=== PATIENT | male | born 1965 | race Caucasian/White ===

== ENCOUNTER 2021-08-11 09:00 | Outpatient (REF) | payer MEDICARE, SELFPAY ==
--- NOTE | ~2021-08-11 | XR_ITS ---
EXAMINATION: XR CERVICAL SPINE CLINICAL INFORMATION: Cervicalgia. COMPARISON: Cervical spine done on 07/26/2017. TECHNIQUE: 5 views of the cervical spine were obtained. FINDINGS: The heights, alignments of the cervical vertebrae are normal. Decreased disc height, endplate osteophyte formation, consistent with moderate to severe spondylosis related changes are noted at C4-5 and to a lesser extent C5-6 and C6-C7, similar to prior study. Moderate foraminal narrowing is noted on the right at C3-4, C4-5 and C5-6 and C6-C7 and on the left at C3-4, C4-5, and C6-C7. The prespinal soft tissues are unremarkable. Both lung apices are clear. The C1-C2 alignment is intact. XR/XR cervical spine 4V IMPRESSION: Multilevel degenerative spondylosis, most pronounced changes at C4-5, similar to prior study dated 07/26/2017.
[2021-08-11 09:24] LABS: MANUAL DIFF FLAG NO
[2021-08-11 09:39] LABS: Basophils Absolute Auto 0.1 X10*3/uL (0.0-0.2); Basophils Percent Auto 0.7 % (0-2); Eosinophils Absolute Auto 0.1 X10*3/uL (0.0-0.4); Eosinophils Percent Auto 1.2 % (0-4); Hematocrit 49.2 % (42.0-52.0); Hemoglobin 16.7 g/dl (14.0-18.0); Imm Gran Abs Auto 0.03 X10*3/uL (0.00-0.03); Imm Gran Pct Auto 0.3 % (0.0-0.4); Lymphocytes Absolute Auto 2.9 X10*3/uL (1.2-4.9); Mean Corpuscular HGB Conc 33.9 g/dl (31.0-36.0); Mean Corpuscular Hemoglobin 31.9 pg (27.0-33.0); Mean Corpuscular Volume 93.9 fL (80.0-98.0); Mean Platelet Volume 9.2 fL (9.4-12.4); Monocytes Absolute Auto 0.8 X10*3/uL (0.1-1.2); Monocytes Percent Auto 7.8 % (2-11); Neutrophils Absolute Auto 5.8 x10*3/uL (2.0-8.3); Platelet Count 313 X10*3/uL (160-400); Red Blood Count 5.24 X10*6/uL (4.60-5.80); Red Cell Distribution Width 13.7 % (11.0-16.0); White Blood Count 9.6 X10*3/uL (4.8-10.8)
[2021-08-11 10:11] LABS: Alanine Aminotransferase 20 U/L (0-40); Albumin Level 3.9 g/dL (3.5-5.0); Alkaline Phosphatase 76 U/L (39-117); Anion Gap 10 (12-20); Aspartate Amino Transferase 20 U/L (5-37); Bilirubin Total 0.5 mg/dL (0.0-1.0); Blood Urea Nitrogen 12 mg/dL (9-16); Calcium 9.1 mg/dL (8.4-10.2); Carbon Dioxide 22 mmol/L (22-29); Chloride 108 mmol/L (96-108); Estimated Glomerular Filt Rate > 60; Glucose Random 110 mg/dL (60-115); Lipase 22 U/L (8-78); Potassium 4.4 mmol/L (3.3-5.1); Sodium 136 mmol/L (135-145); Total Protein 7.3 g/dL (6.5-8.0)
== END 2021-08-11 09:01 | disposition home or self-care (01) ==
LOC: HO.LAB 09:00
PROVIDERS: PCP Internal Medicine; Visit Provider Family Medicine
DX: R10.13 Epigastric pain (principal); M54.2 Cervicalgia; M54.6 Pain in thoracic spine
CPT/HCPCS: 36415; 72050; 80053; 83690; 85025

== ENCOUNTER 2021-12-29 13:38 | Outpatient (REF) | payer MEDICARE, SELFPAY ==
--- NOTE | ~2021-12-29 | CT_ITS ---
EXAMINATION: CT CHEST SCREENING CLINICAL INFORMATION: Current smoker, [id number]. COMPARISON: Chest x-ray 02/07/2015. TECHNIQUE: Multidetector volumetric CT imaging of the chest is performed without contrast using low dose technique. Additional 2D coronal and sagittal reformatted images and axial 3D maximum intensity projection (MIP) images are generated on the CT workstation. This CT examination was performed using dose optimization techniques as appropriate, variously including the following: *Automated exposure control *Adjustment of mA and/or kV according to patient size (this includes techniques or standardized protocols for targeted exams where dose is matched to indication/reason for exam; i.e. extremities or head) *Use of iterative reconstruction technique DLP: 40 mGy-cm. FINDINGS: LUNGS: The lungs are well expanded and clear of acute pneumonic consolidation. There is a 4 mm nodule in the left major fissure likely a lymph node on axial image 225/6, a 2 mm nodule along the left inferior major fissure axial image 284/6, and a 2 nodule left lower lobe adjacent to the major fissure axial image 208/6. MEDIASTINUM: The thyroid lobes are symmetrical and normal. The central trachea and the bronchi are widely patent. Heart size and the great vessels are normal caliber. There is no pericardial effusion. No coronary artery calcification seen. No abnormal mediastinal or hilar lymphadenopathy. CORONARY ARTERY CALCIFICATION: None visualized on this study. PLEURA: There is no pleural effusion. No pleural mass or thickening. AXILLA: No lymphadenopathy. UPPER ABDOMEN: Visualized liver, spleen, gallbladder, pancreas and bilateral adrenal glands unremarkable. OSSEOUS STRUCTURES: Unremarkable. CT/CT lung screening IMPRESSION: Small pulmonary nodules. No acute consolidation. No abnormal mediastinal adenopathy. ASSESSMENT: Lung-RADS category 2 RECOMMENDATION: Low-dose annual CT chest.
== END 2021-12-29 13:39 | disposition home or self-care (01) ==
LOC: HO.CT 13:38
PROVIDERS: PCP Internal Medicine; Visit Provider Physician Assistant Medical
DX: Z12.2 Encounter for screening for malignant neoplasm of respiratory organs (principal); F17.210 Nicotine dependence, cigarettes, uncomplicated
CPT/HCPCS: 71271; G0296

== ENCOUNTER 2022-12-21 09:59 | Outpatient (REF) | payer OTHER, SELFPAY ==
[2022-12-21 15:01] LABS: Alanine Aminotransferase 19 U/L (0-40); Albumin Level 4.2 g/dL (3.5-5.0); Alkaline Phosphatase 78 U/L (39-117); Anion Gap 13 (12-20); Aspartate Amino Transferase 29 U/L (5-37); Bilirubin Total 0.8 mg/dL (0.0-1.0); Blood Urea Nitrogen 13 mg/dL (9-16); Calcium 9.5 mg/dL (8.4-10.2); Carbon Dioxide 21 mmol/L (22-29); Chloride 108 mmol/L (96-108); Cholesterol 175 mg/dL (<200); Estimated Glomerular Filt Rate > 60; Glucose Fasting 75 mg/dL (60-99); HDL Cholesterol 57 mg/dL (>40); LDL Cholesterol Calculated 102 mg/dL (<100); Potassium 3.8 mmol/L (3.3-5.1); Sodium 138 mmol/L (135-145); Total Protein 7.6 g/dL (6.5-8.0); Triglycerides 80 mg/dL (<150)
== END 2022-12-21 10:00 | disposition home or self-care (01) ==
LOC: HO.CHCLDS 09:59
PROVIDERS: Visit Provider Internal Medicine
DX: E78.2 Mixed hyperlipidemia (principal)
CPT/HCPCS: 36415; 80053; 80061

== ENCOUNTER 2023-03-01 13:27 | Outpatient (REF) | payer OTHER, SELFPAY ==
--- NOTE | ~2023-03-01 | CT_ITS ---
EXAMINATION: CT CHEST LOW-DOSE SCREENING WITHOUT CONTRAST HISTORY: Asymptomatic patient meeting criteria for lung screening. PATIENT PACK-YEAR HISTORY: 41 Current Smoker: Yes If former smoker, years since quitting: COMPARISON: 12/29/2021 TECHNIQUE: Multidetector volumetric non-contrast CT imaging of the chest was performed using low dose screening CT technique. Axial thin section 0.625 mm reformations in soft tissue and lung windows were obtained. Sagittal and coronal reformations were obtained. Axial MIP images were also created and reviewed. RECONSTRUCTED WIDTH: 1.25 mm x 1.25 mm TOTAL EXAM DLP: 44 mGy-cm CTDIvol: 1.24 L mGy FINDINGS: LUNGS: Mild centrilobular emphysema. 5 mm left perifissural nodule on image 245. 5 mm right perifissural nodule on image 218. 5 mm nodule left upper lobe on image 187. No focal consolidation. Central airways are patent. PLEURA: No pleural effusion. LYMPH NODES: No bulky mediastinal, hilar or axillary lymphadenopathy. MEDIASTINUM: Great vessels are of normal caliber. Heart size is normal. No pericardial effusion. CORONARY ARTERY CALCIFICATIONS: None. CHEST WALL/BREASTS: No acute abnormality. UPPER ABDOMEN: This study was performed without contrast and with lower than standard dose, reducing the sensitivity for detection of small lesions in the upper abdomen. OSSEOUS STRUCTURES: No destructive bone lesions. CT/CT lung screening IMPRESSION: Stable bilateral pulmonary nodules. LUNG-RADS CATEGORY ASSESSMENT: 2. Benign appearance or behavior. Nodules with a very low likelihood of becoming a clinically active cancer due to size or lack of growth. Continue annual screening with low-dose CT in 12 months. Probability of malignancy less than 1%. INCIDENTAL FINDINGS (S CATEGORY): Finding: No incidental findings. Significance category: Normal or normal variant. RECOMMENDATION: Low dose lung CT. overall in 1 year. Visual estimate of coronary calcified plaque burden: None. However, this exam cannot replace a dedicated cardiac CT calcium score for accurate assessment. LUNG-RADS CATEGORY: 2 -- BENIGN
== END 2023-03-01 13:28 | disposition home or self-care (01) ==
LOC: HO.CT 13:27
PROVIDERS: PCP Internal Medicine; Visit Provider Physician Assistant Medical
DX: Z12.2 Encounter for screening for malignant neoplasm of respiratory organs (principal); F17.210 Nicotine dependence, cigarettes, uncomplicated
CPT/HCPCS: 71271

== ENCOUNTER 2024-03-23 15:47 | Outpatient (REF) | payer OTHER, SELFPAY ==
--- NOTE | ~2024-03-23 | XR_ITS ---
EXAMINATION: XR CERVICAL SPINE CLINICAL INFORMATION: arm numbness, arthritis COMPARISON: Cervical spine radiograph 08/11/2021 TECHNIQUE: AP, lateral and odontoid views of cervical spine, 4 images. FINDINGS: Sagittal alignment of the vertebral bodies and posterior elements is anatomic. Vertebral body heights are maintained. Mild multilevel degenerative disc disease with loss of intervertebral disc and marginal osteophytes, predominantly involving C4-C5 where the degenerative changes are moderate to severe. Alignment is maintained at the atlanto-axial articulation. The prevertebral soft tissues are normal. Visualized lung apices are clear. XR/XR cervical spine 2V IMPRESSION: Mild multilevel degenerative disc disease, predominantly involving C4-C5 where the degenerative changes are moderate to severe. No significant interval change from 08/11/2021. Electronically signed by: Linda Garcia DO 03/23/2024 08:30 PM FRANK IRWIN
[2024-03-23 17:39] LABS: Erythrocyte Sedimentation Rate 3 MM/HR (0-15)
[2024-03-23 17:49] LABS: Rheumatoid Factor < 13.0 IU/mL (<15.0)
[2024-03-25 06:14] LABS: Lyme Abs Screen <0.90 index
== END 2024-03-23 15:48 | disposition home or self-care (01) ==
LOC: HO.XRAY 15:47
PROVIDERS: PCP Internal Medicine; Visit Provider Psychiatry & Neurology Neurology
DX: M19.90 Unspecified osteoarthritis, unspecified site (principal); R20.0 Anesthesia of skin
CPT/HCPCS: 36415; 72040; 82550; 85652; 86431; 86617; 86618

== ENCOUNTER 2024-12-17 11:01 | Outpatient (AMB) | payer OTHER, SELFPAY ==
--- NOTE | 2024-12-17 11:07 | A.OFFVIS_ITS ---
Vital Signs 12/17/24 11:09 Height 5 ft 2 in Weight 141 lb BMI 25.8 BP 115/69 Blood Pressure Location Lt brachial Position Sitting Pulse 77 Pulse Oximetry (%) 98 Oxygen Delivery Method Room Air Intake Visit Reasons: [place] screening Intake Note: Patient new consult for 3rd pre Colonoscopy screening. Patient denies any GI issues for today visit. Electromechanical Engineer Required: Yes Electromechanical Engineer Name: [facility] [place] [facility] Accompanied by: Self / Same As Patient Allergies Penicillins (PENICILLINS) Allergy (Unknown, Verified 12/17/24 11:07) UNKNOWN Medication List - Last Reconciled 12/17/24 by Shaina Santos CNP atorvastatin 40 mg PO BEDTIME brexpiprazole (Rexulti) 2 mg PO QAM clonazepam 0.5 mg PO DAILY PRN duloxetine 60 mg PO QAM hydroxyzine pamoate 50 mg PO TID PRN pantoprazole 40 mg PO DAILY HPI HPI [place] screening: Details: Patient is a 59-year-old male with PMH of hypertension, hyperlipidemia, nicotine NSAIDs in GERD. Referred by PCP for pre colonoscopy screening this will be [facility] colonoscopy. Reports the last was complete approx 5 years ago with normal findings and completed at a [place] facility. Shares his first colonoscopy required a polypectomy. Patient presents for GI evaluation after a single episode of bright red blood seen in the stool earlier this year, with bleeding not observed since and reportedly not associated with wiping. No associated abdominal pain, nausea, or vomiting. Patient has a history of chronic heartburn that recurs when not taking daily pantoprazole 40 mg, controlled when adherent to medication. Describes excessive drooling and emesis if heartburn is present. Denies dysphagia or odynophagia. Reports baseline bowel movements are daily with no constipation. Notable unintentional weight loss from 160 lbs to 141 lbs over the past year, prompting prior PCP evaluation including labs, reported as normal at that time; attributes weight change to use of lemon drink, with no further concerning findings per prior medical workup. No personal or family history of GI malignancy disclosed No longstanding comorbidities or use of immunosuppressive therapies reported. Patient denies: fever/chills, n/v, appetite changes, dysphasia, unintentional wt loss, ab pain. Social hx: D-iet: Regular, drinks lemon beverage frequently; occasional soda; water is main fluid. No major dietary restrictions. Eats variable portion sizes. -Alcohol: Previously beer every weekend, discontinued approx 1 year ago; wine consumption not specified for frequency or current use. -Tobacco: Smoking history (5?6/day); currently trying to quit. -Drugs: History of cocaine use (discontinued), denies current recreational drug use May 2024 CBC CMP lipids TSH - family hx as below -denies personal hx of CA - denies significant cardiopulmonary history -tolerated anesthesia in the past without difficulty. PFSH Medical History (Updated 12/17/24 @ 17:38 by Shaina Santos CNP) Weight loss Blood in stool Colon cancer screening Nicotine dependence, cigarettes, uncomplicated GERD (gastroesophageal reflux disease) HLD (hyperlipidemia) HTN (hypertension) Depression Surgical History (Updated 12/17/24 @ 11:12 by Coco Alamo) Hx of colonoscopy History of left inguinal hernia repair Social History Patient Tobacco Use Status: Current everyday Tobacco user Cigarette Packs Per Day: 0.25 Years Smoked: onset 13yo, 1ppd x43yrs, now 1/4ppd - 40pyh Review of Systems Const Reports as per HPI ENT Reports as per HPI Card Reports as per HPI Resp Reports as per HPI GI Reports as per HPI Reports as per HPI Physical Exam Vital Signs: Last Vital Signs Pulse 77 12/17/24 11:09 BP 115/69 12/17/24 11:09 Pulse Ox 98 12/17/24 11:09 Oxygen Delivery Method Room Air 12/17/24 11:09 BMI result Body Mass Index 25.8 Const General: healthy appearing, no acute distress and well developed Nutritional Appearance: average body habitus Orientation/consciousness: patient oriented x3 HEENT Head: Yes normal to inspection, Yes normocephalic and Yes atraumatic Face and sinus: Yes normal facial exam Eyes General: appearance normal, both eyes and all related structures Neck Neck: Yes normal visual inspection Resp Effort & Inspection: normal respiratory effort, able to speak in complete sentences, no tracheal deviation and symmetric chest movement Cardio Jugular venous distension: no JVD Neuro General: patient oriented x3 Gait exam (Neuro): Normal gait present Psych Appearance: grossly normal Mental Status: mental status grossly normal Speech and movement: Normal speech and movement present Affect: normal affect Attitude: cooperative Thought process: Normal thought process present Thought content: Normal thought content present Insight: Good insight present (Psych) Judgement: Good judgement present (Psych) Assessment & Plan Assessment & Plan (1) Colon cancer screening: Code(s): Z12.11 - Encounter for screening for malignant neoplasm of colon Category: Medical Plan: Due for polyp surveillance colonoscopy. Medications: -prescriptions for laxative tablets and PEG sent to pharmacy; instructions on clear liquid diet given. Patient educated on scheduling process, procedure preparation, including avoiding certain foods and ensuring clear liquid intake Advised on necessity for ride post-procedure due to sedation. (2) GERD (gastroesophageal reflux disease): Code(s): K21.9 - Gastro-esophageal reflux disease without esophagitis Category: Medical Qualifiers: Esophagitis presence: esophagitis presence not specified Qualified Code(s): K21.9 - Gastro-esophageal reflux disease without esophagitis Plan: Chronic heartburn, sialorrhea/emesis when untreated, known alcohol, and diet- related triggers; improved with pantoprazole. Additional Testing: EGD planned concurrent with colonoscopy. Medication: Continue pantoprazole 40 mg QAM; reinforce adherence with administration before breakfast and without food. Lifestyle: Recommend minimizing/avoiding alcohol, tobacco cessation, smaller meals, avoid late meals, remain upright after eating, limit acidic and carbonated drinks. Follow-Up: After endoscopy. (3) Blood in stool: Code(s): K92.1 - Melena Category: Medical Plan: Single episode of BRBPR earlier in year; colonoscopy indicated given age and bleeding history. Additional Testing: Screening colonoscopy ordered; EGD for reflux symptom assessment. Obtain prior blood work from PCP (CBC for anemia). Medication: None indicated at present. Lifestyle: Reinforce bowel habit awareness, avoid straining. Follow-Up: Per results of colonoscopy/EGD. (4) Weight loss: Code(s): R63.4 - Abnormal weight loss Category: Medical Plan: 19 lb unintentional weight loss; prior workup non-contributory; under PCP monitoring; attributed to dietary change. Additional Testing: Retrieve May lab results (CBC, CMP); update if not completed within past year. Medication: N/A Lifestyle: Encourage balanced nutrition/hydration. Follow-Up: As above; further workup if symptoms persist or worsen. Plan Follow-up after endoscopy or sooner as needed Time: I spent a total of 30 minutes on the date of encounter which includes: Preparing to see the patient (reviewed previous documentation, test results and medical history) Performing a medically appropriate exam and/or evaluation Ordering medications, tests, and procedures Documenting clinical information in the health record 1 Orders: Referrals GI Procedure Notification K21.9 - Gastro-esophageal reflux disease without esophagitis, K92.1 - Melena, Z12.11 - Encounter for screening for malignant neoplasm of colon Medications: New bisacodyl Take per colonoscopy instructions 5 mg PO ONCE 4 tabs 0RF peg 3350-electrolytes [id number] -5.86 gram until fecal effluent is clear 240 mL PO Q10M 4,000 mL 0RF simethicone (Gas Relief (simethicone)) per colonoscopy prep instructions 125 mg PO ONCE 4 caps 0RF abdominal distention Coding Level of Care Code New Pt New Pt Level 3 (61124) Patient Type New Diagnoses Colon cancer screening Z12.11 Gastroesophageal reflux disease, unspecified whether esophagitis present K21.9 Esophagitis presence: esophagitis presence not specified Blood in stool K92.1 Weight loss R63.4
[2024-12-17 11:09] VITALS: BP 115/69; PULSE 77; O2SAT 98; BMI 25.8
--- OUTSIDE RECORDS SUMMARY | 2024-12-17 13:10 | XMS_ITS | Encounter Summary ---
Author Organization [employer] Address [address] [place] [address] [address] [place] [address] Care Team Providers Care Linter Tender Name Role Phone Vaibhav Moses MD Primary Care Prov ider Encounter Details Date Type Department Care Team (Latest Contact Info) Description 10/11/2020 Abstract [facility] Dental, Provider, DDS Social History Tobacco Use Types Packs/Day Years Used Date Smoking Tobacco: Never Assessed Sex and Gender Information Value Date Recorded Sex Assigned at Male 01/29/2022 10:16 AM EDT Legal Sex Male 10:16 AM EDT Gender Identity Male 01/29/2022 10:16 AM EDT Sexual Orientation Straight 12/10/2023 4: 33 PM EDT documented as of this encounter Plan of Treatment Not on file documented as of this encounter Visit Diagnoses Not on filedocumented in this encounter Care Teams Linter Tender Relationship Specialty Start Date End Date Vaibhav Moses MD [address] [place] [address] PCP - General Internal Medicine 05/29/19 documented as of this encounter
--- OUTSIDE RECORDS SUMMARY | 2024-12-17 13:10 | XMS_ITS | Clinical Summary ---
Author Organization [employer] Address [address] [place] [address] 7[address] [place] [address] Care Team Providers Care Technical Business Analyst Name Role Phone Vaibhav Moses MD Primary Care Prov ider Allergies Active Allergy Reactions Criticality Noted Date Comments Penicillin G Hives 04/25/2022 Penicillins 12/02/2015 Other reaction(s): Rash, Rash Medications * This document contains information received from the source organization and may not represent a complete record from that organization. Rexulti 2 MG tablet Take 1 tablet by mouth in the morning. 06/14/19 23 Active clonazePAM (KlonoPIN) 0.5 MG tablet TAKE ONE TABLET DAILY NEEDED FOR ANXIETY (SEVERE) (UP TO FIVE TIMES PER MONTH) 06/14/19 23 Active DULoxetine (Cymbalta) [address] capsule Take 60 mg by mouth in the morning. 06/15/19 23 Active hydrOXYzine pamoate (Vistaril) 50 MG capsule TAKE ONE CAPSULE THREE TIMES DAILY NEEDED FOR ANXIETY 06/14/19 23 Active atorvastatin (Lipitor) 40 MG tabletIndications: Mixed hyperlipidemia TAKE ONE TABLET EVERY NIGHT AT BEDTIME 90 tablet 1 09/05/19 25 Active pantoprazole (ProtoNix) 40 MG EC tablet TAKE ONE TABLET BY MOUTH EVERY MORNING 90 tablet 3 11/29/19 25 Active pantoprazole (ProtoNix) 40 MG EC tablet TAKE ONE TABLET BY MOUTH EVERY MORNING 90 tablet 3 10/22/19 24 025 Discontinued Active Problems Problem Noted Date Diagnosed Date Screening for colon cancer 09/03/2024 Assessment & Plan (09/03/2024 3:55 PM EDT): Will refer for screening colon cancer Primary hypertension 04/25/2022 Assessment & Plan (06/25/2024 3:37 PM EDT): Has remained stable without medical treatment, continue low sodium diet and exercise as tolerated, keep bp log, follow up in 4 months Assessment & Plan (08/02/2022 4:45 PM EDT): Controlled, he has been off htn treatment, managed with diet, no changes will be made, bp target <140/90 Assessment & Plan (04/25/2022 11:38 AM EST): Controlled, reinforced low sodium diet and exercise as tolerated, new lab order will be place, will follow up in 3 months Mixed hyperlipidemia 04/25/2022 Assessment & Plan (06/25/2024 3:38 PM EDT): On statin therapy, new labs ordered for guidance of therapy Assessment & Plan (08/02/2022 4:46 PM EDT): Labs were remarkable for elevated cholesterol/ldl, he refers not taking atorvastatin daily as recommended, but will start taking it daily, will follow up in 2 months with new blood work Assessment & Plan (04/25/2022 11:38 AM EST): On statin therapy, will order new labs for guidance of therapy Prostate cancer screening 04/25/2022 Screening for lung cancer 04/25/2022 Assessment & Plan (04/25/2022 11:39 AM EST): Will refer for LDCT Neck muscle spasm 04/25/2022 Assessment & Plan (04/25/2022 11:40 AM EST): Will provide methocarbamol, told to apply ice/heat pads, rest and perform stretching exercises Encounters * This document contains information received from the source organization and may not represent a complete record from that organization. Date Type Department Care Team Description 11/27/2024 Refill [facility] [address] [place] [id number] Lashon Aranda MD from Last 3 Months Social History Tobacco Use Types Packs/Day Years Used Date Smoking Tobacco: Every Day Cigarettes 0.5 40 Smokeless Tobacco: Never Tobacco Cessation:Ready to Q uit: Not Asked; Counseling Given: Not Answered Alcohol Use Standard Drinks/Week Comments Not Currently 0 (1 standard drink = 0.6 oz pur e alcohol) Depression Answer Date Recorded Patient Health Questionnaire-9 Score 6 11/07/2023 Patient Health Questionnaire-9 Score 6 11/07/2023 Last PHQ-9: Questionnaire Data Not on file 0 11/07/2023 Housing Stability Answer Date Recorded What is your housing situation today? I have machelle mcmillan 11/07/[address] you li ve. Do you have problems with any of the following? None of the above 11/07/2023 Food Insecurity Answer Date Recorded Within the past 12 months, y ou worried that your food would run out before you got money to buy more: Never True 11/07/2023 Within the past 12 months,th e food you bought just didn't last and you didn't have enough money to get more: Never True 10/2023 Transportation Answer Date Recorded In the past 12 months, has l ack of transportation kept you from medical appts, meetings, work or from getting things needed for daily living? No 11/07/2023 Utilities Answer Date Recorded In the past 12 months, has t he electric, gas, oil or water company threatened to shut off services in your home? No 11/07/2023 Depression Answer Date Recorded Patient Health Questionnaire-2 Score 1 11/07/2023 Internet Access Answer Date Recorded Internet Access Q1 Yes 12/02/2023 Internet Access Q2 Not on file 12/02/2023 Sex and Gender Information Value Date Recorded Sex Assigned at Male 01/29/2022 10:16 AM EDT Legal Sex Male 10:16 AM EDT Gender Identity Male 01/29/2022 10:16 AM EDT Sexual Orientation Straight 12/10/2023 4: 33 PM EDT Last Filed Vital Signs Vital Sign Reading Time Taken Comments Blood Pressure 128/85 06/25/2024 2:38 PM EDT Pulse 92 06/25/2024 2:38 PM EDT Temperature 37.1 C (98.8 F) 12/10/2023 3:47 PM EDT Respiratory Rate 20 12/10/2023 3:47 PM EDT Oxygen Saturation - - Inhaled Oxygen Concentration - - Weight 63.5 kg (140 lb) 12/10/2023 3:47 PM EDT Height 160 cm (5' 3 ) 12/10/2023 3:47 PM EDT Body Mass Index 24.8 12/10/2023 3:47 PM EDT Plan of Treatment Health Maintenance Due Date Last Done Comments CT Colonography 1965 Dental Prophylaxis 1963 FIT DNA/Cologuard 1963 FIT 1965 FOBT 1965 Sigmoidoscopy 1965 Disability Screening 1965 Alcohol/Substance Use Screening 1975 Dental Oral Exam 01/23/2023 07/23/2022 Dental X-Ray: Bitewings 07/25/2023 07/23/2022 Depression Screening 11/06/2024 11/07/2023, 11/07/2023 SDOH Screening 11/06/2024 11/07/2023 COVID-19 Vaccine (2 - 2024-2 6 season) 2024 03/27/2021 Influenza Vaccine (#1) 2024 03/27/2021 Tobacco Screening 12/09/2024 12/10/2023 Dental X-Ray: Full Mouth 07/24/2025 07/23/2022 Lipid Panel 12/22/2027 12/21/2022, 07/11/2022, 09/29/2021 Colonoscopy 02/08/2031 02/08/2021, 08/09/2014 Colorectal Cancer Screening 02/08/2031 DTaP/Tdap/Td Vaccines (2 - T d or Tdap) 07/21/2031 07/20/2021 RSV Patients and Patients Aged 60 years or older (1 - 1-dose 75+ series) 12/06/2038 Zoster Vaccines Completed 09/21/2021, 07/20/2021 Pneumococcal Vaccine: 50+ Years Completed 11/21/2021 HIV Screening Completed 07/11/2022 Hepatitis C Screening Completed 07/11/2022 Lung Cancer Screening Discontinued 03/01/2023 HIB Vaccines Aged Out No longer eligi ble based on patient's age to complete this topic HPV Vaccines Aged Out No longer eligi ble based on patient's age to complete this topic Hepatitis A Vaccines Aged Out No long er eligible based on patient's age to complete this topic Hepatitis B Vaccines Aged Out No long er eligible based on patient's age to complete this topic IPV Vaccines Aged Out No longer eligi ble based on patient's age to complete this topic Meningococcal B Vaccine Aged Out No l onger eligible based on patient's age to complete this topic Meningococcal Vaccine Aged Out No kartik luis eligible based on patient's age to complete this topic RSV under 20 months Aged Out No longe r eligible based on patient's age to complete this topic Rotavirus Vaccines Aged Out No longer eligible based on patient's age to complete this topic Procedures Procedure Name Priority Date/Time Associated Diagnosis Comments LDCT LUNG SCREENING Routine 03/01/2023 1 :45 PM EST LIPID PANEL, STANDARD Routine 12/21/2022 10:00 AM EDT Mixed hyperlipidemia INTRAORAL - COMPLETE SERIES OF RADIOGRAPHIC IMAGES Routine 07/23/2022 1:00 PM EDT COMPREHENSIVE ORAL EVALUATION - NEW OR ESTABLISHED PATIENT Routine 07/23/2022 1:00 PM EDT HEPATITIS C AB W/REFL TO HCV RNA, QN, PCR Routine 07/11/2022 10:27 AM EDT Primary hypertension HIV 1 RNA, QN PCR W/RFL [place] (RTI,PI,INTEGRASE) Routine 07/11/2022 10:27 AM EDT Primary hypertension HM COLONOSCOPY Routine 08/09/2014 12:39 PM EDT from Last 3 Months or Most Recently Relevant to Health Maintenance Results * CT Lung Screening Low dose (03/01/2023 1:45 PM EST) Anatomical Region Laterality Modality Lung Computed Tomogra phy 03/01/2023 1:45 PM EST Narrative 03/06/2023 2:44 PM EST [address] [address] [address] Scan Report Signed Patient: Orlin Ellis MR#: [id number] 28 : 1965 Acct:[id number] Age/Sex: 57 / M ADM Date: 03/01/23 Loc: HO.CT Attending Dr: Kiki Griffin PA-C Ordering Physician: Kiki Griffin PA-C Date of Service: 03/01/23 Procedure(s): CT lung screening Accession Number(s): [id number] cc: Vaibhav Moses MD; Kiki Griffin PA-C EXAMINATION: CT CHEST LOW-DOSE SCREENING WITHOUT CONTRAST HISTORY: Asymptomatic patient meeting criteria for lung screening. PATIENT PACK-YEAR HISTORY: 41 Current Smoker: Yes If former smoker, years since quitting: COMPARISON: 12/29/2021 TECHNIQUE: Multidetector volumetric non-contrast CT imaging of the chest was performed using low dose screening CT technique. Axial thin section 0.625 mm reformations in soft tissue and lung windows were obtained. Sagittal and coronal reformations were obtained. Axial MIP images were also created and reviewed. RECONSTRUCTED WIDTH: 1.25 mm x 1.25 mm TOTAL EXAM DLP: 44 mGy-cm CTDIvol: 1.24 L mGy FINDINGS: LUNGS: Mild centrilobular emphysema. 5 mm left perifissural nodule on image 245. 5 mm right perifissural nodule on image 218. 5 mm nodule left upper lobe on image 187. No focal consolidation. Central airways are patent. PLEURA: No pleural effusion. LYMPH NODES: No bulky mediastinal, hilar or axillary lymphadenopathy. MEDIASTINUM: Great vessels are of normal caliber. Heart size is normal. No pericardial effusion. CORONARY ARTERY CALCIFICATIONS: None. CHEST WALL/BREASTS: No acute abnormality. UPPER ABDOMEN: This study was performed without contrast and with lower than standard dose, reducing the sensitivity for detection of small lesions in the upper abdomen. OSSEOUS STRUCTURES: No destructive bone lesions. CT/CT lung screening IMPRESSION: Stable bilateral pulmonary nodules. LUNG-RADS CATEGORY ASSESSMENT: 2. Benign appearance or behavior. Nodules with a very low likelihood of becoming a clinically active cancer due to size or lack of growth. Continue annual screening with low-dose CT in 12 months. Probability of malignancy less than 1%. INCIDENTAL FINDINGS (S CATEGORY): Finding: No incidental findings. Significance category: Normal or normal variant. RECOMMENDATION: Low dose lung CT. overall in 1 year. Visual estimate of coronary calcified plaque burden: None. However, this exam cannot replace a dedicated cardiac CT calcium score for accurate assessment. LUNG-RADS CATEGORY: 2 -- BENIGN Dictated By: Chas Bhakta MD Signed By: <Electronically signed by Chas Bhakta MD in OV> 03/06/23 1440 DD/ 1345 TD/TT: Home Decorator: Procedure Note Donotuseinterpreter, Image - 03/06/[address] [address] [address] Scan Report Signed Patient: Debora Ellis#: [id number] 28 : 1965Acct:[id number] Age/Sex: 57 / MADM Date: 03/01/23 Loc: HO.CT Attending Dr: Kiki Griffin PA-C Ordering Physician: Kiki Griffin PA-C Date of Service: 03/01/23 Procedure(s): CT lung screening Accession Number(s): [id number] cc: Vaibhav Moses MD; Kiki Griffin PA-C EXAMINATION: CT CHEST LOW-DOSE SCREENING WITHOUT CONTRAST HISTORY: Asymptomatic patient meeting criteria for lung screening. PATIENT PACK-YEAR HISTORY: 41 Current Smoker: Yes If former smoker, years since quitting: COMPARISON: 12/29/2021 TECHNIQUE: Multidetector volumetric non-contrast CT imaging of the chest was performed using low dose screening CT technique. Axial thin section 0.625 mm reformations in soft tissue and lung windows were obtained. Sagittal and coronal reformations were obtained. Axial MIP images were also created and reviewed. RECONSTRUCTED WIDTH: 1.25 mm x 1.25 mm TOTAL EXAM DLP: 44 mGy-cm CTDIvol: 1.24 L mGy FINDINGS: LUNGS: Mild centrilobular emphysema. 5 mm left perifissural nodule on image 245. 5 mm right perifissural nodule on image 218. 5 mm nodule left upper lobe on image 187. No focal consolidation. Central airways are patent. PLEURA: No pleural effusion. LYMPH NODES: No bulky mediastinal, hilar or axillary lymphadenopathy. MEDIASTINUM: Great vessels are of normal caliber. Heart size is normal. No pericardial effusion. CORONARY ARTERY CALCIFICATIONS: None. CHEST WALL/BREASTS: No acute abnormality. UPPER ABDOMEN: This study was performed without contrast and with lower than standard dose, reducing the sensitivity for detection of small lesions in the upper abdomen. OSSEOUS STRUCTURES: No destructive bone lesions. CT/CT lung screening IMPRESSION: Stable bilateral pulmonary nodules. LUNG-RADS CATEGORY ASSESSMENT: 2. Benign appearance or behavior. Nodules with a very low likelihood of becoming a clinically active cancer due to size or lack of growth. Continue annual screening with low-dose CT in 12 months. Probability of malignancy less than 1%. INCIDENTAL FINDINGS (S CATEGORY): Finding: No incidental findings. Significance category: Normal or normal variant. RECOMMENDATION: Low dose lung CT. overall in 1 year. Visual estimate of coronary calcified plaque burden: None. However, this exam cannot replace a dedicated cardiac CT calcium score for accurate assessment. LUNG-RADS CATEGORY: 2 -- BENIGN Dictated By: Chas Bhakta MD Signed By: <Electronically signed by Chas Bhakta MD in OV> 03/06/23 1440 DD/ 1345 TD/TT: Home Decorator: [facility] External Provider IMG CT PROCEDURES Final Result * (ABNORMAL) Lipid Panel, Standard (12/21/2022 10:00 AM EDT) Triglycerides 80 <150 mg/dL [facility] Comment:Desirable Triglyceri de: less than 150 mg/dLBorderline High Triglyceride 150-199 mg/dLHigh Triglyceride: 200-499 mg/dLVery High Triglyceride: greater than or equal to 5OO mg/dL Cholesterol 175 <200 mg/dL [facility] Comment:Desirable Cholestero l: less than 200 mg/dLBorderline High Cholesterol: 200-239 mg/dLHigh Cholesterol: greater than 239 mg/dL LDL Cholesterol Calculated 102(H) <100 mg/dL [facility] Comment:Desirable LDL: less than 100 mg/dLNear Optimal/Above Optimal LDL: 110- 129 mg/dLBorderline High LDL: 130-159 mg/dLHigh LDL: 160-189 mg/dLVery High LDL: greater than or equal to 190 mg/dL HDL Cholesterol 57 >40 mg/dL [facility] Comment:Desirable HDL: great er than 40 mg/dL Note: This HDL assay may give artificially low results in patients with liver disease. Blood Venous blood specimen / Unknown 12/21/2022 10:00 AM EDT 12/21/2022 2:25 PM EDT Vaibhav Rosas MD LAB BLOOD ORDERABL ES Final Result [facility] [address] [place] [phone] * HIV-1 RNA, Quantitative, Real-Time PCR with Reflex to Genotype (RTI, PI, Integrase) (07/11/2022 10:27 AM EDT) Pathologist [facility] HIV 1 RNA, QN PCR NOT DETECTED copies/mL [facility], HIV 1 RNA, QN PCR NOT DETECTED Log copies/mL [facility], Comment: REFERENCE RANGE: NOT DETECTED copies/mL NOT DETECTED Log copies/mL This test was performed using Real-Time Polymerase Chain Reaction. Reportable range is 20 to 10,000,000 copies/mL (1.30-7.00 Log copies/mL). 07/11/2022 10:2 7 AM EDT 07/11/2022 10:27 AM EDT Narrative [facility] - 07/15/2022 3:27 PM EDT FASTING:YES FASTING: YES Vaibhav Rosas MD LAB BLOOD ORDERABL ES Final Result [facility] [address], [place] [address] [employer], [address] [place] [address] * Hepatitis C Antibody with Reflex to HCV, RNA, Quantitative, Real-Time PCR (07/11/2022 10:27 AM EDT) Hepatitis C Antibody NON-REACT SORAYA NON-REACT SORAYA [employer] [facility] Index 0.09 <1.00 [employer] [facility] Comment: HCV antibody was non-reactive. There is no laboratory evidence of HCV infection. In most cases, no further action is required. However, if recent HCV exposure is suspected, a test for HCV RNA (test code 05477) is suggested. For additional information please refer to http://[employer]/faq/WGZ84a6 (This link is being provided for informational/ educational purposes only.) Blood Venous blood specimen / Unknown 07/11/2022 10:27 AM EDT 07/11/2022 10:27 AM EDT Narrative [facility] - 07/15/2022 3:27 PM EDT FASTING:YES FASTING: YES Vaibhav Rosas MD LAB BLOOD ORDERABL ES Final Result [facility] [address], [place] [address] [employer] [place] [facility] [address] [place] [address] * Hm Colonoscopy (08/09/2014 12:39 PM EDT) Salvador Provider HEALTH MAINTENANCE Final Result from Last 3 Months or Most Recently Relevant to Health Maintenance [place] [address] [address] [place] [address] STANDARD [facility] < 65 [place] STAND ADULT Care Teams Technical Business Analyst Relationship Specialty Start Date End Date Vaibhav Moses MD [address] [place] [id number] PCP - General Internal Medicine 05/29/19
--- OUTSIDE RECORDS SUMMARY | 2024-12-17 13:10 | XMS_ITS | Encounter Summary ---
Author Organization [employer] Address [address] [place] [address] [address] [place] [address] Care Team Providers Care Yarn Skeins Examiner Name Role Phone Vaibhav Moses MD Primary Care Prov ider Encounter Details Date Type Department Care Team ([facility] st Contact Info) Description 09/03/2024 Orders Only [facility] [address] [place] [address] Vaibhav Moses MD [address] [place] [address] Social History Tobacco Use Types Packs/Day Years Used Date Smoking Tobacco: Every Day Cigarettes 0.5 40 Smokeless Tobacco: Never Alcohol Use Standard Drinks/Week Comments Not Currently [...] Diagnoses Not on filedocumented in this encounter Additional Health Concerns Assessment Noted Time PHQ-9 Depression Total Score: 6 11/07/19 24 2:07 PM EDT documented as of this encounter Care Teams Yarn Skeins Examiner Relationship Specialty Start Date End Date Vaibhav Moses MD [address] [place] [address] PCP - General Internal Medicine 05/29/19 documented as of this encounter
--- OUTSIDE RECORDS SUMMARY | 2024-12-17 13:10 | XMS_ITS | Clinical Summary ---
Author Organization [employer] [facility] Address [address] [place] [address] Care Team Providers Care Review Trainer Name Role Phone Unavailable Primary Care Provider Unavailabl e Social History Tobacco Use Types Packs/Day Years Used Date Smoking Tobacco: Never Assessed Sex and Gender Information Value Date Recorded Sex Assigned at Not on file Legal Sex Male 1:51 PM EST Gender Identity Not on file Sexual Orientation Not on file Plan of Treatment Health Maintenance Due Date Last Done Comments DTaP,Tdap,and Td Vaccines (1 - Tdap) 12/06/1982 Pneumococcal Vaccine: 50+ Ye ars (1 of 1 - PCV) 12/06/2013 Zoster Vaccines (1 of 2) 12/06/2013 Depression Screening 04/01/2024 COVID-19 Vaccine (1 - 2023-2 5 season) 2024 Influenza Vaccine (#1) 2024 RSV Immunization Adult Patie nts (1 - 1-dose 75+ series) 12/06/2038 HIB Vaccines Aged Out No longer eligi [...] on patient's age to complete this topic MMR Vaccines Aged Out No longer eligi ble based on patient's age to complete this topic Meningococcal ACWY Vaccine Aged Out N o longer eligible based on patient's age to complete this topic Meningococcal B Vaccine Aged Out No l onger eligible based on patient's age to complete this topic RSV Immunization Patients Un mercedes 20 months Aged Out No longer eligible b ased on patient's age to complete this topic Varicella Vaccines Aged Out No longer eligible based on patient's age to complete this topic
--- OUTSIDE RECORDS SUMMARY | 2024-12-17 13:10 | XMS_ITS | Encounter Summary ---
Author Organization [employer] Address [address] [place] [address] [address] [place] [address] Care Team Providers Care Burr Mill Operator Name Role Phone Vaibhav Moses MD Primary Care Prov ider Encounter Details Date Type Department Care Team (Late st Contact Info) Description 07/19/2023 Orders Only [facility] [address] [place] [address] ProviderSalvador MD Social History Tobacco Use Types Packs/Day Years Used Date Smoking Tobacco: Every Day Cigarettes 0.5 40 Smokeless Tobacco: Never Alcohol Use Standard Drinks/Week Comments Not Currently 0 (1 standard drink = 0.6 oz pur e alcohol) Depression Answer Date Recorded Patient Health Questionnaire-9 Score 0 08/02/2022 Housing Stability Answer Date Recorded What is your housing situation today? I have machelle mcmillan 01/25/[address] you li ve. Do you have problems with any of the following? None of the above 01/25/2023 Food Insecurity Answer Date Recorded Within the past 12 months, y ou worried that your food would run out before you got money to buy more: Never True 01/25/2023 Within the past 12 months,th e food you bought just didn't last and you didn't have enough money to get more: Never True Transportation Answer Date Recorded In the past 12 months, has l ack of transportation kept you from medical appts, meetings, work or from getting things needed for daily living? No 01/25/2023 Utilities Answer Date Recorded In the past 12 months, has t he electric, gas, oil or water company threatened to shut off services in your home? No 01/25/2023 Depression Answer Date Recorded Patient Health Questionnaire-2 Score 0 08/02/2022 Sex and Gender Information Value Date Recorded Sex Assigned at Male 01/29/2022 10:16 AM EDT Legal Sex Male 10:16 AM EDT Gender Identity Male 01/29/2022 10:16 AM EDT Sexual Orientation Straight 12/10/2023 4: 33 PM EDT documented as of this encounter Plan of Treatment Not on file documented as of this encounter Procedures Procedure Name Priority Date/Time Associated Diagnosis Comments HM COLONOSCOPY Routine 08/09/2014 12:39 PM EDT documented in this encounter Results * Hm Colonoscopy (08/09/2014 12:39 PM EDT) us Historical Provider HEALTH MAINTENANCE Final Result documented in this encounter Visit Diagnoses Not on filedocumented in this encounter Additional Health Concerns Assessment Noted Time PHQ-9 Depression Total Score: 0 08/03/19 23 11:12 AM EDT documented as of this encounter Care Teams Burr Mill Operator Relationship Specialty Start Date End Date McleanVaibhav Castaneda MD [address] [place] [id number] PCP - General Internal Medicine 05/29/19 documented as of this encounter
== END 2024-12-17 11:51 | disposition home or self-care (01) ==
LOC: HO.HGI 11:01
PROVIDERS: PCP Internal Medicine; Visit Provider Nurse Practitioner Family
DX: K21.9 Gastro-esophageal reflux disease without esophagitis (principal); K92.1 Melena; R63.4 Abnormal weight loss; Z12.11 Encounter for screening for malignant neoplasm of colon
CPT/HCPCS: 99203

== ENCOUNTER → 2024-12-17 11:01 | Outpatient (BNVA) | payer OTHER, SELFPAY | PROVIDERS: PCP Internal Medicine; Visit Provider Nurse Practitioner Family | DX: Z12.11 Encounter for screening for malignant neoplasm of colon (principal); K21.9 Gastro-esophageal reflux disease without esophagitis; K92.1 Melena; R63.4 Abnormal weight loss | CPT/HCPCS: 99202 ==

== ENCOUNTER 2025-01-29 01:11 | Emergency (ER) | payer OTHER, SELFPAY ==
[2025-01-29 01:16] VITALS: BP 113/71; PULSE 99; RESP 16; TEMP 36.6; O2SAT 96; BMI 27.2
--- NOTE | 2025-01-29 01:27 | PC.NURSE ---
pt from wr to ed2 for bedside triage, +neuros no facial droop/focal deficits/slurred speech noted. c/o L. sided RODRIGUEZ x 3 days, no hx of same/migraines. pt denies daily alcohol use but reports had some wine with dinner tonight. denies home meds/medical hx. afebrile vss. labs ordered, awaiting eval by primary ed provider/primary RN Manjit.
--- NOTE | 2025-01-29 01:46 | ED.GENADULT ---
HPI - General Adult General Chief complaint: Headache Stated complaint: headache on left side Time Seen by Provider: 01/29/25 01:14 Source: patient Limitations: no limitations History of Present Illness ED Provider: Opal Guevara PA-C HPI narrative: 59-year-old male with a history of hypertension, hyperlipidemia, GERD, tobacco use who presents with a headache x3 days. Pain is left-sided, retro-orbital with the radiation to parietal region. Associated photosensitivity. Denies nausea or dizziness. The onset was gradual not sudden or acute, no neck pain. The headache has also been intermittent. No preceding heavy lifting injury. No head trauma, no use of a blood thinner. No recent illness or fever. Patient has not tried any rhag-bzi-wicdxbw medication to alleviate his pain. He admits to drinking wine overnight. Related Data Home Medications ?Medication ?Instructions ?Recorded ?Confirmed atorvastatin 40 mg tablet 40 mg PO BEDTIME 12/17/24 12/17/24 brexpiprazole 2 mg tablet (Rexulti) 2 mg PO QAM 12/17/24 12/17/24 clonazepam 0.5 mg tablet 0.5 mg PO DAILY PRN 12/17/24 12/17/24 duloxetine 60 mg capsule,delayed 60 mg PO QAM 12/17/24 12/17/24 release hydroxyzine pamoate 50 mg capsule 50 mg PO TID PRN anxiety 12/17/24 12/17/24 pantoprazole 40 mg tablet,delayed 40 mg PO DAILY 12/17/24 12/17/24 release Previous Rx's ?Medication ?Instructions ?Recorded bisacodyl 5 mg tablet,delayed 5 mg PO ONCE #4 tabs 12/17/24 release peg 3350-electrolytes 236 240 ml PO Q10M #4,000 mL 12/17/24 gram-22.74 gram-6.74 gram-5.86 gram solution simethicone 125 mg capsule (Gas 125 mg PO ONCE abdominal 12/17/24 Relief (simethicone)) distention #4 caps Allergies Allergy/AdvReac Type Severity Reaction Status Date / Time Penicillins (PENICILLINS) Allergy Unknown UNKNOWN Verified 01/29/25 01:18 Review of Systems Review of Systems: Yes all other systems are reviewed and are negative Constitutional: Constitutional: Denies fatigue, Denies fever(s) and Reports headache(s) ENT: Denies dizziness, Reports headache(s) and Denies neck pain Cardiovascular: Cardiovascular: Denies chest pain and Denies dyspnea Respiratory: Respiratory: Denies dyspnea Gastrointestinal: Gastrointestinal: Denies abdominal pain, Denies nausea and Denies vomiting Musculoskeletal: Musculoskeletal: Denies neck pain Neurologic: Denies dizziness and Reports headache(s) Endocrine: Endocrine: Denies fatigue PMFSH Past Medical History Attestation statement: The following information was validated with the patient. Medical History (Updated 01/29/25 @ 03:09 by LU Rendon) Weight loss Blood in stool Colon cancer screening Nicotine dependence, cigarettes, uncomplicated GERD (gastroesophageal reflux disease) HLD (hyperlipidemia) HTN (hypertension) Depression Surgical History (Updated 12/17/24 @ 11:12 by Coco Alamo) Hx of colonoscopy History of left inguinal hernia repair Social History Social History Patient Tobacco Use Status: Current everyday Tobacco user Cigarette Packs Per Day: 0.25 Years Smoked: onset 13yo, 1ppd x43yrs, now 1/4ppd - 40pyh Smoked in Last 30 Days: No Advance Directives: No Advance Directives Information Provided: Yes Do you have a plan to hurt others: No Plan Physical Exam ED Vital Signs: Vital Signs - 24 hr 01/29/25 01:16 Temperature 97.8 F Pulse Rate 99 Respiratory Rate 16 Blood Pressure 113/71 Pulse Oximetry 96 Oxygen Delivery Method Room Air BMI result Body Mass Index 27.2 Const Other: Alert well-appearing Orientation/consciousness: patient oriented x3 Neck Neck: Yes full ROM and Yes no meningeal signs Resp Effort & Inspection: normal respiratory effort Cardio Other: Normal peripheral perfusion Skin Other: Warm dry no rash Neuro General: patient oriented x3, gait normal, no meningeal signs, no focal motor deficits and CN's II-XI intact bilaterally Psych Other: Cooperative Course Reevaluation(s) Reevaluation #1: Headache resolved Time: 03:07 Medications Administered Discontinued Medications Generic Name Dose Route Start Last Admin Trade Name Freq PRN Reason Stop Dose Admin Dexamethasone Sodium Phosphate 10 mg 01/29/25 01:43 01/29/25 02:20 Dexamethasone Sod Phosphate 10 Mg/Ml Vial IVPUSH 01/29/25 01:44 10 mg ONCE ONE Administration Diphenhydramine HCl 25 mg 01/29/25 01:43 01/29/25 02:22 Diphenhydramine Hcl 50 Mg/Ml Vial IVPUSH 01/29/25 01:44 25 mg ONCE ONE Administration Sodium Chloride 500 mls @ 500 mls/hr 01/29/25 01:43 01/29/25 02:15 Ns IV 01/29/25 02:42 500 mls/hr .Q1H ONE Administration Ketorolac Tromethamine 15 mg 01/29/25 01:43 01/29/25 02:18 Ketorolac Tromethamine 15 Mg/Ml Vial IVPUSH 01/29/25 01:44 15 mg ONCE ONE Administration Prochlorperazine Edisylate 10 mg 01/29/25 01:43 01/29/25 02:16 Prochlorperazine Edisylate 10 Mg/2 Ml Vial IVPUSH 01/29/25 01:44 10 mg ONCE ONE Administration Medical Decision Making Medical Decision Making MDM Narrative: 59-year-old male with a history of hypertension, hyperlipidemia, GERD, tobacco use who presents with a headache x3 days. Pain is left-sided, retro-orbital with the radiation to parietal region. Associated photosensitivity. Denies nausea or dizziness. The onset was gradual not sudden or acute, no neck pain. The headache is also been intermittent. No preceding heavy lifting injury. No head trauma, no use of a blood thinner. No recent illness or fever. Patient has not tried any jmzv-lgm-wwtiijw medication to alleviate his pain. He admits to drinking wine overnight. Problem: Hypertension History: Per patient I have considered the following differential diagnoses: Migraine headache, tension headache, intracranial hemorrhage, meningitis, VAD Plan: Patient here with the an intermittent headache, without any red flags signs symptoms concerning for a ICH, there was no head trauma he is not on a blood thinner, he is neurologically intact, he has had intermittent symptoms for 3 days. His headache is migrainous in nature, we will try a migraine cocktail. Doubtful to be meningitis there are no meningeal signs on exam he has full range of motion of the neck and he is afebrile, has not been ill. Thought about VAD, however there was no preceding heavy lifting mechanism, and again he is neurologically intact. Screening basic labs including ethanol, the alcohol use maybe contributory, it may be incidental. I have independently reviewed the following tests: Labs: Slight leukocytosis, not anemic, no electrolyte abnormality, ethanol 120, viral panel, negative Differential Diagnosis Differential Diagnoses: The differential diagnosis associated with the presentation includes See medical decision-making Admission/Observation Consideration of admission/observation: Escalation of care including admission/observation considered Not applicable Lab Data MDM Lab Attestation statement: I reviewed the patient's lab results. 01/29/25 01:54 01/29/25 01:54 Labs: Lab Results 01/29/25 01/29/25 Range/Units 01:54 01:57 WBC 11.3 H (4.8-10.8) X10*3/uL RBC 4.94 (4.60-5.80) X10*6/uL Hgb 16.0 (14.0-18.0) g/dl Hct 46.7 (42.0-52.0) % MCV 94.5 (80.0-98.0) fL MCH 32.4 (27.0-33.0) pg MCHC 34.3 (31.0-36.0) g/dl RDW 14.3 (11.0-16.0) % Plt Count 256 (160-400) X10*3/uL MPV 9.2 L (9.4-12.4) fL Immature Gran % (Auto) 0.2 (0.0-0.4) % Neut % (Auto) 48.1 (45-73) % Lymph % (Auto) 40.4 H (20-40) % [place] % (Auto) 9.2 (2-11) % Eos % (Auto) 1.6 (0-4) % Baso % (Auto) 0.5 (0-2) % Lymph # (Auto) 4.6 (1.2-4.9) X10*3/uL [place] # (Auto) 1.0 (0.1-1.2) X10*3/uL Eos # (Auto) 0.2 (0.0-0.4) X10*3/uL Baso # (Auto) 0.1 (0.0-0.2) X10*3/uL Abs Immat Gran (auto) 0.02 (0.00-0.03) X10*3/uL Absolute Neuts (auto) 5.5 (2.0-8.3) x10*3/uL Absolute Nucleated RBC 0.000 (0.0-0.012) X10*3/uL Nucleated RBC % (auto) 0.0 (0.0-0.2) /100WBC Sodium 142 (135-145) mmol/L Potassium 3.9 (3.3-5.1) mmol/L Chloride 110 H (96-108) mmol/L Carbon Dioxide 22 (22-29) mmol/L Anion Gap 14 (12-20) BUN 15 (9-16) mg/dL Creatinine 1.04 (0.5-1.4) mg/dL Estim Creat Clear Calc 63.0 Estimated GFR > 60 Random Glucose 79 (60-115) mg/dL Calcium 8.9 D (8.4-10.2) mg/dL Magnesium 2.1 (1.6-2.6) mg/dL Total Bilirubin 0.2 (0.0-1.0) mg/dL AST 33 (5-37) U/L ALT 22 (0-40) U/L Alkaline Phosphatase 94 (39-117) U/L Total Protein 7.3 (6.5-8.0) g/dL Albumin 4.4 (3.5-5.0) g/dL Ethyl Alcohol 120 mg/dL COVID-19 (AUGUSTINE) Negative (Negative) COVID-19 Clin Com See Note Influenza Type A (WILDA) Negative (Negative) Influenza Type B (WILDA) Negative (Negative) Influenza A & B Note See Note Discharge Plan Discharge Clinical Impression: Headache Patient Disposition: Home, Self-Care Instructions: General Headache (ED) Additional Instructions: All of your screening labs were normal with the exception that your alcohol level was elevated. The alcohol in your system may have exacerbated your head pain. You were treated for a migraine type headache, you responded to a migraine cocktail. See home care instructions. Follow up with your primary care provider as needed. Prescriptions: No Action atorvastatin 40 mg tablet 40 mg PO BEDTIME clonazepam 0.5 mg tablet 0.5 mg PO DAILY PRN hydroxyzine pamoate 50 mg capsule 50 mg PO TID PRN (Reason: anxiety) pantoprazole 40 mg tablet,delayed release (DR/EC) 40 mg PO DAILY duloxetine 60 mg capsule,delayed release(DR/EC) 60 mg PO QAM Rexulti 2 mg tablet 2 mg PO QAM simethicone [Gas Relief (simethicone)] 125 mg capsule 125 mg PO ONCE Qty: 4 0RF Rx Instructions: per colonoscopy prep instructions bisacodyl 5 mg tablet,delayed release (DR/EC) 5 mg PO ONCE Qty: 4 0RF Rx Instructions: Take per colonoscopy instructions peg 3350-electrolytes 236-22.74-6.74 -5.86 gram recon soln 240 ml PO Q10M Qty: 4000 0RF Rx Instructions: until fecal effluent is clear Print Language: Tongan
[2025-01-29 02:07] LABS: Hematocrit 46.7 % (42.0-52.0); Hemoglobin 16.0 g/dl (14.0-18.0); Imm Gran Abs Auto 0.02 X10*3/uL (0.00-0.03); Imm Gran Pct Auto 0.2 % (0.0-0.4); Lymphocytes Absolute Auto 4.6 X10*3/uL (1.2-4.9); MANUAL DIFF FLAG NO; Mean Corpuscular HGB Conc 34.3 g/dl (31.0-36.0); Mean Corpuscular Hemoglobin 32.4 pg (27.0-33.0); Mean Corpuscular Volume 94.5 fL (80.0-98.0); NRBC Abs Auto 0.000 X10*3/uL (0.0-0.012); NRBC Pct Auto 0.0 /100WBC (0.0-0.2); Platelet Count 256 X10*3/uL (160-400); Red Blood Count 4.94 X10*6/uL (4.60-5.80); White Blood Count 11.3 X10*3/uL (4.8-10.8)
--- OUTSIDE RECORDS SUMMARY | 2025-01-29 02:11 | XMS_ITS | Encounter Summary ---
Author Organization [employer] Address [address] [place] [address] [address] [place] [address] Care Team Providers Care Display Coordinator Name Role Phone Vaibhav Moses MD Primary Care Prov ider Encounter Details Date Type Department Care Team ([facility] st Contact Info) Description 09/03/2024 Orders Only [facility] MED [facility] PEDS [address] [place] [address] Vaibhav Moses MD [address] [place] [address] Social History Tobacco Use Types Packs/Day Years [...] documented as of this encounter Care Teams Display Coordinator Relationship Specialty Start Date End Date Vaibhav Moses MD [address] [place] [address] PCP - General Internal Medicine 05/29/19 documented as of this encounter
--- OUTSIDE RECORDS SUMMARY | 2025-01-29 02:11 | XMS_ITS | Encounter Summary ---
Author Organization [employer] Address [address] [place] [address] 7 [place] [address] Care Team Providers Care Regional Hr Manager Name Role Phone Vaibhav Moses MD Primary Care Prov ider Encounter Details Date Type Department Care Team (Latest Contact Info) Description 10/11/2020 Abstract [facility] CONVERSIONS Dental, Provider, DDS Social History Tobacco [...] on filedocumented in this encounter Care Teams Regional Hr Manager Relationship Specialty Start Date End Date Vaibhav Moses MD [address] [place] [address] PCP - General Internal Medicine 05/29/19 documented as of this encounter
--- OUTSIDE RECORDS SUMMARY | 2025-01-29 02:11 | XMS_ITS | Clinical Summary ---
Author Organization [employer] [facility] ity Address [address] [place] [address] Care Team Providers Care Machine Spreader Name Role Phone Unavailable Primary Care Provider [...]
--- OUTSIDE RECORDS SUMMARY | 2025-01-29 02:11 | XMS_ITS | Clinical Summary ---
Author Organization [employer] Address [address] [place] [address] [address] [place] [address] Care Team Providers Care Crewman Main Battle Tank Name Role Phone Vaibhav Moses MD Primary Care Prov ider Allergies Active Allergy Reactions Criticality Noted Date Comments Penicillin G Hives 04/25/2022 Penicillins 12/02/2015 Other reaction(s): Rash, Rash Medications * This document contains information received from the source organization and may not represent a complete record from that organization. Rexulti 2 MG tablet Take 1 tablet by mouth in the morning. 3 Active clonazePAM (KlonoPIN) 0.5 MG tablet TAKE ONE TABLET DAILY NEEDED FOR ANXIETY (SEVERE) (UP TO FIVE TIMES PER MONTH) 3 Active DULoxetine (Cymbalta) [address] capsule Take 60 mg by mouth in the morning. 3 Active hydrOXYzine pamoate (Vistaril) 50 MG capsule TAKE ONE CAPSULE THREE TIMES DAILY NEEDED FOR ANXIETY 3 Active atorvastatin (Lipitor) 40 MG tabletIndications:M ixed hyperlipidemia TAKE ONE TABLET EVERY NIGHT AT BEDTIME 90 tablet 1 5 Active pantoprazole (ProtoNix) 40 MG EC tablet TAKE ONE TABLET BY MOUTH EVERY MORNING 90 tablet 3 5 Active Active Problems Problem Noted Date Diagnosed Date [...] pads, rest and perform stretching exercises Encounters Date Type Department Care Team Description 01/29/2025 Orders Only GENERIC EXTERNAL DATA DEPARTMENT Provider, Generic External Data 11/27/2024 Refill [facility] [address] [place] [address] Lashon Aranda MD from Last 3 Months [...] Procedure Name Priority Date/Time Associated Diagnosis Comments CBC WITH AUTO DIFFERENTIAL Routine 01/29/2025 1:54 AM EDT LDCT LUNG SCREENING Routine 03/01/2023 1 :45 [...] Recently Relevant to Health Maintenance Results * (ABNORMAL) CBC auto differential (01/29/2025 1:54 AM EDT) White Blood Count 11.3(H) 4.8 - 10.8 X10*3/uL [facility] Red Blood Count 4.94 4.60 - 5.80 X10*6/uL [facility] Hemoglobin 16.0 14.0 - 18.0 g/dl [facility] Hematocrit 46.7 42.0 - 52.0 % [facility] Mean Corpuscular Volume 94.5 80.0 - 98.0 fL [facility] Mean Corpuscular Hemoglobin 32.4 27.0 - 33.0 pg [facility] Mean Corpuscular HGB Conc 34.3 31.0 - 36.0 g/dl [facility] Red Cell Distribution Width 14.3 11.0 - 16.0 % [facility] Platelet Count 256 160 - 400 X10*3/uL [facility] Mean Platelet Volume 9.2(L) 9.4 - 12.4 fL [facility] Neutrophils Percent Auto 48.1 45 - 73 % [facility] Imm Gran Pct Auto 0.2 0.0 - 0.4 % [facility] Lymphocytes Percent Auto 40.4(H) 20 - 40 % [facility] Monocytes Percent Auto 9.2 2 - 11 % [facility] Eosinophils Percent Auto 1.6 0 - 4 % [facility] Basophils Percent Auto 0.5 0 - 2 % [facility] NRBC Pct Auto 0.0 0.0 - 0.2 /100WBC [facility] Neutrophils Absolute Auto 5.5 2.0 - 8.3 x10*3/uL [facility] Imm Gran Abs Auto 0.02 0.00 - 0.03 X10*3/uL [facility] Lymphocytes Absolute Auto 4.6 1.2 - 4.9 X10*3/uL [facility] Monocytes Absolute Auto 1.0 0.1 - 1.2 X10*3/uL [facility] Eosinophils Absolute Auto 0.2 0.0 - 0.4 X10*3/uL [facility] Basophils Absolute Auto 0.1 0.0 - 0.2 X10*3/uL [facility] NRBC Abs Auto 0.000 0.0 - 0.012 X10*3/uL [facility] 01/29/2025 1:54 AM EDT 01/29/2025 2:05 AM EDT us Generic External Data Provider LAB BLOOD ORDERAB LES Edited Result - Final [facility] [address] [place] [phone] * CT Lung Screening Low dose (03/01/2023 1:45 PM EST) Anatomical Region Laterality Modality Lung Computed Tomogra phy 03/01/2023 1:45 PM EST Narrative 03/06/2023 2:44 PM EST [address] [address] [address] Scan Report Signed Patient: Orlin Ellis MR#: [id number] [birth year] : 1965 Acct:[id number] Age/Sex: 57 / M ADM Date: 03/01/23 Loc: HO.CT Attending Dr: Kiki Griffin PA-C Ordering Physician: Kiki Griffin PA-C Date of Service: 03/01/23 Procedure(s): CT lung screening Accession Number(s): [id number] cc: Vaibhav Moses MD; Kiki Griffin PA-C [...] in OV> 03/06/23 1440 DD/ 1345 TD/TT: Portable Track Crew Chief: Procedure Note Donotuseinterpreter, Image - 03/06/[address] [place] [address] [address] Scan Report Signed Patient: Debora Ellis#: [id number] [birth year] : 1965Acct:[id number] Age/Sex: 57 / MADM Date: 03/01/23 Loc: HO.CT Attending Dr: Kiki Griffin PA-C Ordering Physician: Kiki Griffin PA-C Date of Service: 03/01/23 Procedure(s): CT lung screening Accession Number(s): [id number] cc: Vaibhav Moses MD; Kiki Griffin PA-C [...] in OV> 03/06/23 1440 DD/ 1345 TD/TT: Portable Track Crew Chief: [facility] External Provider IMG CT PROCEDURES Final Result * (ABNORMAL) Lipid Panel, Standard (12/21/2022 10:00 AM EDT) Triglycerides 80 <150 mg/dL [facility] Comment:Desirable Triglyceri de: less than 150 mg/dLBorderline High Triglyceride 150-199 mg/dLHigh Triglyceride: 200-499 mg/dLVery High Triglyceride: greater than or equal to 5OO mg/dL Cholesterol 175 <200 mg/dL [facility] Comment:Desirable Cholestero l: less than 200 mg/dLBorderline High Cholesterol: 200-239 mg/dLHigh Cholesterol: greater than 239 mg/dL LDL Cholesterol Calculated 102(H) <100 mg/dL [facility] Comment:Desirable LDL: less than 100 mg/dLNear Optimal/Above Optimal LDL: 110- 129 mg/dLBorderline High LDL: 130-159 mg/dLHigh LDL: 160-189 mg/dLVery High LDL: greater than or equal to 190 mg/dL HDL Cholesterol 57 >40 mg/dL [facility] Comment:Desirable HDL: great er than 40 mg/dL Note: This HDL assay may give artificially low results in patients with liver disease. Blood Venous blood specimen / Unknown 12/21/2022 10:00 AM EDT 12/21/2022 2:25 PM EDT Vaibhav Rosas MD LAB BLOOD ORDERABL ES Final Result [facility] [address] [place] [phone] * HIV-1 RNA, Quantitative, Real-Time PCR with Reflex to Genotype (RTI, PI, Integrase) (07/11/2022 10:27 AM EDT) Pathologist [facility] HIV 1 RNA, QN PCR NOT DETECTED copies/mL [facility], HIV 1 RNA, QN PCR NOT DETECTED Log copies/mL [facility], Comment: REFERENCE RANGE: NOT DETECTED copies/mL NOT DETECTED Log copies/mL This test was performed using Real-Time Polymerase Chain Reaction. Reportable range is 20 to 10,000,000 copies/mL (1.30-7.00 Log copies/mL). 07/11/2022 10:2 7 AM EDT 07/11/2022 10:27 AM EDT Narrative [facility] - 07/15/2022 3:27 PM EDT FASTING:YES FASTING: YES Vaibhav Rosas MD LAB BLOOD ORDERABL ES Final Result Performing Organization Address [facility] de Phone Number [facility] [address], [place] [address] [employer]Lori [facility], [address] [place] [address] * Hepatitis C Antibody with Reflex to HCV, RNA, Quantitative, Real-Time PCR (07/11/2022 10:27 AM EDT) Hepatitis C Antibody NON-REACT SORAYA NON-REACT SORAYA impok Index 0.09 <1.00 impok Comment: HCV antibody was non-reactive. There is no laboratory evidence of HCV infection. In most cases, no further action is required. However, if recent HCV exposure is suspected, a test for HCV RNA (test code 72803) is suggested. For additional information please refer to http://education.[employer]/faq/CLT36g9 (This link is being provided for informational/ educational purposes only.) Blood Venous blood specimen / Unknown 07/11/2022 10:27 AM EDT 07/11/2022 10:27 AM EDT Narrative [facility] - 07/15/2022 3:27 PM EDT FASTING:YES FASTING: YES Vaibhav Rosas MD LAB BLOOD ORDERABL ES Final Result Performing Organization Address [facility] Co de Phone Number [facility] [address], [place] [address] [employer] [place] [employer] [address] [place] [address] * Hm Colonoscopy (08/09/2014 12:39 PM EDT) Salvador Hicks MD HEALTH MAINTENANCE Final Result from Last 3 Months or Most Recently Relevant to Health Maintenance Insurance [facility] STANDARD [facility] ONE CARE < 65 DENTAL-[facility] MEDICAID STAND ADULT Care Teams Crewman Main Battle Tank Relationship Specialty Start Date End Date McleanVaibhav Castaneda MD [address] [place] [phone] PCP - General Internal Medicine 05/29/19
--- OUTSIDE RECORDS SUMMARY | 2025-01-29 02:11 | XMS_ITS | Encounter Summary ---
Author Organization [employer] Address [address] [place] [address] [address] [place] [address] Care Team Providers Care Repairer Welding Equipment Name Role Phone Vaibhav Moses MD Primary Care Prov ider Encounter Details Date Type Department Care Team (Late st Contact Info) Description 01/29/2025 Orders Only GENERIC EXTERNAL DATA DEPARTMENT Provider, Generic External Data Social History Tobacco Use Types Packs/Day Years [...] AUTO DIFFERENTIAL Routine 01/29/2025 1:54 AM EDT documented in this encounter Results * (ABNORMAL) CBC auto differential (01/29/2025 1:54 AM EDT) White Blood Count 11.3(H) 4.8 - 10.8 X10*3/uL [facility] Red Blood Count 4.94 4.60 - 5.80 X10*6/uL [facility] Hemoglobin 16.0 14.0 - 18.0 g/dl [facility] Hematocrit 46.7 42.0 - 52.0 % [facility] Mean Corpuscular Volume 94.5 80.0 - 98.0 fL [facility] Mean Corpuscular Hemoglobin 32.4 27.0 - 33.0 pg [facility] Mean Corpuscular HGB Conc 34.3 31.0 - 36.0 g/dl [facility] Red Cell Distribution Width 14.3 11.0 - 16.0 % [facility] Platelet Count 256 160 - 400 X10*3/uL [facility] Mean Platelet Volume 9.2(L) 9.4 - 12.4 fL [facility] Neutrophils Percent Auto 48.1 45 - 73 % [facility] Imm Gran Pct Auto 0.2 0.0 - 0.4 % [facility] Lymphocytes Percent Auto 40.4(H) 20 - 40 % [facility] Monocytes Percent Auto 9.2 2 - 11 % [facility] Eosinophils Percent Auto 1.6 0 - 4 % [facility] Basophils Percent Auto 0.5 0 - 2 % [facility] NRBC Pct Auto 0.0 0.0 - 0.2 /100WBC [facility] Neutrophils Absolute Auto 5.5 2.0 - 8.3 x10*3/uL [facility] Imm Gran Abs Auto 0.02 0.00 - 0.03 X10*3/uL [facility] Lymphocytes Absolute Auto 4.6 1.2 - 4.9 X10*3/uL [facility] Monocytes Absolute Auto 1.0 0.1 - 1.2 X10*3/uL [facility] Eosinophils Absolute Auto 0.2 0.0 - 0.4 X10*3/uL [facility] Basophils Absolute Auto 0.1 0.0 - 0.2 X10*3/uL [facility] NRBC Abs Auto 0.000 0.0 - 0.012 X10*3/uL [facility] 01/29/2025 1:54 AM EDT 01/29/2025 2:05 AM EDT us Generic External Data Provider LAB BLOOD ORDERAB LES Edited Result - Final [facility] [address] [place] [phone] documented in this encounter Visit Diagnoses Not on filedocumented in this encounter Additional Health Concerns Assessment Noted Time PHQ-9 Depression Total Score: 6 11/07/19 24 2:07 PM EDT documented as of this encounter Care Teams Repairer Welding Equipment Relationship Specialty Start Date End Date Vaibhav Moses MD [address] [place] [phone] PCP - General Internal Medicine 05/29/19 documented as of this encounter
--- OUTSIDE RECORDS SUMMARY | 2025-01-29 02:11 | XMS_ITS | Encounter Summary ---
Author Organization [employer] Address [address] [place] [address] [address] [place] [address] Care Team Providers Care [employer] [place] [employer] Name Role Phone Vaibhav Moses MD Primary Care Prov ider Encounter Details Date Type Department Care Team (Late st Contact Info) Description 07/19/2023 Orders Only [facility] [address] [place] [address] ProviderSalvador MD Social History Tobacco Use Types [...] documented as of this encounter Care Teams [place] [place] [employer] Relationship Specialty Start Date End Date McleanVaibhav Castaneda MD [address] [place] [id number] PCP - General Internal Medicine 05/29/19 documented as of this encounter
[2025-01-29 02:23] LABS: COVID-19 Test Negative (Negative); IDNOW Serial# 55D5AD1C; IDNOW Serial# 58CA691E; Influenza B2 Negative (Negative)
[2025-01-29 02:29] LABS: Alanine Aminotransferase 22 U/L (0-40); Albumin Level 4.4 g/dL (3.5-5.0); Alkaline Phosphatase 94 U/L (39-117); Anion Gap 14 (12-20); Aspartate Amino Transferase 33 U/L (5-37); Blood Urea Nitrogen 15 mg/dL (9-16); Calcium 8.9 mg/dL (8.4-10.2); Carbon Dioxide 22 mmol/L (22-29); Chloride 110 mmol/L (96-108); Creatinine Clr Calc Pharmacy 63.0; Estimated Glomerular Filt Rate > 60; Magnesium 2.1 mg/dL (1.6-2.6); Potassium 3.9 mmol/L (3.3-5.1); Sodium 142 mmol/L (135-145); Total Protein 7.3 g/dL (6.5-8.0)
[2025-01-29 03:17] VITALS: BP 97/58; PULSE 85; RESP 20; O2SAT 95
[2025-01-29 03:55] VITALS: BP 110/59; PULSE 88; RESP 18; TEMP -17.7; TEMP 0; O2SAT 95
== END 2025-01-29 03:58 | disposition home or self-care (01) ==
PROVIDERS: Emergency Provider Emergency Medicine; PCP Internal Medicine
DX: R51.9 Headache, unspecified (principal); I10 Essential (primary) hypertension; Z72.0 Tobacco use; Z79.899 Other long term (current) drug therapy; Z87.19 Personal history of other diseases of the digestive system
CPT/HCPCS: 80053; 80307; 83735; 85025; 87502; 87635; 96361; 96374; 96375; 99284; 99285; J0737; J1100; J1200; J1885